=== PATIENT | female | born 1995 | race Caucasian/White ===

== ENCOUNTER 2024-12-07 17:14 | Emergency (ER) | payer OTHER ==
[2024-12-07] MEDS ORDERED: Ketorolac Tromethamine 30 MG (1 mL) VIAL ONE (18:29)
[2024-12-07] MEDS ORDERED: Cyclobenzaprine 10 MG TAB ONE (18:35)
== END 2024-12-07 19:26 | disposition home or self-care (01) ==
LOC: CSHERS 17:14
DX: M54.50 Low back pain, unspecified (principal); E11.9 Type 2 diabetes mellitus without complications
CPT/HCPCS: 96372; 99283; J1885